=== PATIENT | male | born 1960 | race Caucasian/White ===

== ENCOUNTER 2022-06-17 02:09 | Emergency (ER) | payer OTHER ==
[~2022-06-17] VITALS: Ht 162.6 cm; Wt 80.7 kg
[~2022-06-17 02:09] MED LIST: ALTACE1.25 MG PO
[2022-06-17] MEDS ORDERED: GLIMEPIRIDE4 MG (02:27)
== END 2022-06-17 06:53 | disposition home or self-care (01) ==
LOC: ER 02:09
DX: K21.9 Gastro-esophageal reflux disease without esophagitis (principal); E11.9 Type 2 diabetes mellitus without complications; Z79.84 Long term (current) use of oral hypoglycemic drugs